=== PATIENT | male | born 1955 | race Caucasian/White ===

== ENCOUNTER 2019-08-02 10:30 | Day surgery (SDC) | payer OTHER, SELFPAY ==
[2019-07-28 15:10] VITALS: BP 133/81; PULSE 53; RESP 16; TEMP 36.9; O2SAT 98; BMI 26.4
--- NOTE | 2019-07-28 15:15 | SDCEKG_ITS ---
Test Reason : Blood Pressure : / mmHG Vent. Rate : 053 BPM Atrial Rate : 053 BPM P-R Int : 152 ms QRS Dur : 100 ms QT Int : 414 ms P-R-T Axes : 047 -01 015 degrees QTc Int : 388 ms Sinus bradycardia Otherwise normal ECG Confirmed by FAVIO TIDWELL, HAMILTON ([id number]), order editor SENTHIL MULLER ([id number]) on 08/01/2019 12:12:10 PM Referred By: Shar Rowley Confirmed By:HAMILTON STAHL MD
[2019-07-28 15:44] LABS: Hematocrit 43.1 % (40-54); Hemoglobin 13.8 g/dL (13.0-16.5); Mean Corpuscular Hgb 29.5 pg (27.0-32.0); Mean Corpuscular Volume 92.1 fL (80-94); Mean Platelet Vol. 10.1 fl (6.2-12.0); Platelet Count 279 K/mm3 (150-450); RBC Distribution Width CV 14.2 % (11.6-14.6); RBC Distribution Width SD 48.1 fl (35.1-43.9); Red Blood Count 4.68 M/mm3 (4.6-6.2); White Blood Count 6.7 K/mm3 (4.4-11.0)
[2019-08-02] VITALS (10 sets, daily range): BP systolic 94–140; BP diastolic 53–84; PULSE 53–67; RESP 16–64; TEMP 36.1–37.5; O2SAT 95–99; BMI 26.4
[2019-08-02] MEDS: Lactated Ringers 1,000 ML 100 ML IV (10:57)
[2019-08-02] MEDS: Cefazolin 2 GM in 0.9% Normal Saline 100 ML IV (11:51)
[2019-08-02] MEDS: Lubricating Jelly 60 GM Tube 30 GM TOPICAL (12:15)
--- NOTE | 2019-08-02 12:15 | PROS_PTH ---
PATIENT: DARRELL TAFOYA LOC: [facility] [place] U#:[id number] AGE/SX: 64/M ROOM: RE08/02/[address]: Dr. Shar Rowley MD : [id number] BED: DIS: 08/03/2019 SPEC #: [id number] RECD: 08/02/19 15:50 STATUS: ROSENDO REKelly #: [id number] AMERICO: 08/02/19 12:[address]: Shar Rowley DEPT: SURGICAL PATHOLOGY RECD BY: Pete Millard ENTERED: 08/03/19 08:08 SP TYPE: TURP OTHR DR: Dr. Scott Herzog MD Tissues: Prostate, NOS Procedures: Surgery Specimen Level IV HEADER OPERATION: Cysto, TUR prostate, Olympus PRE-OP DIAGNOSIS: BPH with lower urinary tract symptoms; urine retention TISSUE SUBMITTED: Prostate tissue MICROSCOPIC DIAGNOSIS Prostate, transurethral resection: Benign nodular hyperplasia, glandular and stromal types. Chronic inflammation. AM:venus 08/04/19 MICROSCOPIC DESCRIPTION Slides are reviewed. GROSS DESCRIPTION Received is one container labeled with the patient's name and designated prostate tissue. The specimen consists of multiple irregular fragments of pink-rocha, rubbery, soft tissue that in aggregate weigh 23.5 gm and measure in aggregate 8 x 7 x 2.5 cm. Coagulating Bath Operator tissue is submitted in 12 cassettes. / SJ:venus 08/03/19 TC:3 CPT: 80574
[2019-08-02] MEDS: 0.9% Normal Saline 1,000 ML 75 ML IV ×2 (13:30→21:04)
--- NOTE | 2019-08-02 13:30 | PCM.DC.URO ---
Discharge Diet: Light diet - advance as tolerated Discharge Activity: Return to Normal Activity, May not drive while taking narcotic pain medications., May Shower Call your doctor if your incision/area has: Continuous Slow Oozing, Sudden Increased Bleeding, Increased Pain/ Swelling, Increased Redness, Foul Smelling Discharge, Swelling at the incision site Suture Line Care: Avoid Pulling/Pushing, Avoid Pinching/Bending Allergies/Adverse Reactions: Allergies No Known Allergies Allergy (Verified 08/02/19 10:40) Medications to take at Discharge Donepezil HCl 5 mg PO DAILY 07/28/19 Tamsulosin HCl 0.4 mg PO QHS 07/28/19 Ciprofloxacin [Cipro] 500 mg PO BID #14 tab 08/02/19 Hydrocodone/Acetaminophen [[place] 5-325 Tablet] 1 ea PO Q4H PRN PRN 5 Days #14 tab 08/02/19 The following prescriptions were given: Ciprofloxacin [Cipro] 500 mg PO BID #14 tab Transmission Status: Pending to [place], [place] Hydrocodone/Acetaminophen [[place] 5-325 Tablet] 1 ea PO Q4H PRN PRN 5 Days #14 tab PRN Reason: Pain Score 1-10/10 Transmission Status: Sent to [place], [place] Primary Care Physician: Scott Herzog MD [Primary Care Provider] - Test Results: Test results from this visit will be discussed in further detail at your follow-up appointment, if applicable. Please Follow Up With: Shar Rowley MD When: in 2 weeks, please call to make an appointment. Proposed Discharge Date: 08/03/19
--- NOTE | 2019-08-02 13:31 | OP.PCM_ITS ---
Report of Operation Date of Procedure: 08/02/19 Pre-Operative Diagnosis: BPH with obstruction Post-Operative Diagnosis: Same Surgery/Procedure Performed:: Transurethral resection of the prostate Description of Surgical Findings:: 64-year-old male was found to have a significant obstruction with a median lobe and bilateral hypertrophy he does have difficulty with intermittent urinary retention so because of this he is elected to undergo a transurethral resection the prostate with the risk of the surgery including bleeding infection and damage to the sphincter and bladder control problems after the surgery. 64-year-old male taken back to the operating room after smooth induction of general anesthesia he was placed in dorsolithotomy position, penis and testicles are prepped and draped in usual sterile fashion, I dilated the meatus from 14 Argentine to 28 Argentine with sounds using plenty of lubrication to dilate the meatus after this is able to go into the urethra with a 26 Argentine continuous-flow resectoscope. On inspection I found the left and right ureteral orifice I found the verumontanum identified the sphincter he had a large median lobe and bilateral hypertrophy with a lots of obstruction. I then resected the median lobe. I took out the scope switched over to the 24 Argentine noncontinuous flow and then did the rest of rest of the resection of the prostate with a 24 Argentine Olympus bipolar resectoscope using noncontinuous flow resected the right lobe of the prostate resect the left lobe of the prostate then did a flow test still had some obstruction and resected more of the apical tissue and then had a very nice wide open flow got all the chips out of the bladder I inspected the left and right ureteral orifice were clear and intact with no obstruction the sphincter was intact I then Ellik out all the chips obtained hemostasis that another flow test had a nice wide open flow look back into the sphincter the sphincter was coapted nicely and intact. We then put a three-way catheter into the bladder with a 22 Argentine and continuous irrigation anesthetic was reversed patient had a very difficult time reversing from anesthesia was pulling was fighting had to be held down for little bit and then eventually woke up and then once he came to he was taken back to the PACU in stable condition. The urine was nice and clear the catheter was in place and the urine draining nicely. Type of Anesthesia:: General Drains: 22fr 3 way - Admit VTE Documentation VTE Present on Admission: No VTE Mechan Device Prophylaxis: SCD's
[2019-08-02] MEDS: Tamsulosin HCl 0.4 MG Capsule PO (21:04)
[2019-08-02] MEDS: Ciprofloxacin 400 MG/200 ML BAG 200 MG IV (21:05)
[2019-08-02] MEDS: Docusate Sodium 100 MG Capsule PO (21:05)
[2019-08-03 02:30] VITALS: BP 97/54; PULSE 61; RESP 16; TEMP 37; O2SAT 96
[2019-08-03 05:45] LABS: Hematocrit 38.8 % (40-54); Mean Corp Hgb Conc 33.5 g/dL (32-36); Mean Corpuscular Hgb 30.5 pg (27.0-32.0); Mean Corpuscular Volume 91.1 fL (80-94); Mean Platelet Vol. 10.5 fl (6.2-12.0); Platelet Count 239 K/mm3 (150-450); RBC Distribution Width CV 13.8 % (11.6-14.6); RBC Distribution Width SD 46.6 fl (35.1-43.9); Red Blood Count 4.26 M/mm3 (4.6-6.2); White Blood Count 10.9 K/mm3 (4.4-11.0)
[2019-08-03 06:05] LABS: Anion Gap 4 (5-15); BUN 23 mg/dL (7-18); BUN/Creat Ratio 26.7 RATIO (10-20); Calcium,Total 8.7 mg/dL (8.5-10.1); Chloride 105 mmol/L (98-107); Creatinine, Serum 0.86 mg/dL (0.70-1.30); EST Glomerular Filtration Rate 96 mL/min (>60); Est Glom Filt Rate - Afr Amer 116 mL/min (>60); Estimated Creatinine Clearance 80.37 ml/min; Glucose 117 mg/dL (74-106); Potassium 4.2 mmol/L (3.5-5.1); Sodium Level 139 mmol/L (136-145)
[2019-08-03 08:00] VITALS: BP 104/62; PULSE 58; RESP 16; TEMP 37.2; O2SAT 97
[2019-08-03] MEDS: Donepezil HCl 5 MG Tablet PO (08:15)
[2019-08-03] MEDS: Docusate Sodium 100 MG Capsule PO (08:15)
[2019-08-03] MEDS: Pantoprazole Sodium 40 MG Tablet PO (08:16)
[2019-08-03] MEDS: Ciprofloxacin 400 MG/200 ML BAG 200 MG IV (08:57)
--- NOTE | 2019-08-03 09:43 | CASEMGMT ---
had informed RN pt needs to complete LW/POA forms. SW met w/pt and in room in regard to completing the forms. Pt asked if put SW up to this. states that she had asked about it yesterday, states she has worked in the hospital and nursing homes, and is familiar with the paperwork but can't explain it as well. SW explained to the pt and we can complete the forms while pt is here. SW asked pt if he would like to complete the forms today. Pt states he would not, as he is just getting out of the hospital today. Pt agreeable to SW reviewing the documents with him. SW did explain to pt that without the documents, would be the decision maker if needed. suggested to pt that maybe he would like to have their daughter Chandni be POA. SW reviewed the documents w/pt and . SW gave them a rack card for the SW dept with the blank forms, and let the pt know he can call or can call to make an appointment to complete the forms when he is ready. Pt and state understanding. No further needs at this time. SYLVIE James
== END 2019-08-03 10:29 | disposition home or self-care (01) ==
LOC: SDC 10:31 → AC 10:31 → MS3 13:33
PROVIDERS: Anesthesiology; PCP Family Medicine; Referring Provider Urology; Visit Provider Urology
PROC: (CPT 52601; principal; 2019-08-02 12:05)
DX: N40.1 Benign prostatic hyperplasia with lower urinary tract symptoms (principal); N13.8 Other obstructive and reflux uropathy; R33.8 Other retention of urine; F03.90 Unspecified dementia, unspecified severity, without behavioral disturbance, psychotic disturbance, mood disturbance, and anxiety; F17.200 Nicotine dependence, unspecified, uncomplicated
CPT/HCPCS: 52601; 36415; 80048; 85027; 88305; 93005; 99251; 99406; J7030; J7120; G0463; J0744; J2405